=== PATIENT | male | born 1935 | race Caucasian/White ===

== ENCOUNTER 2018-07-08 11:14 | Emergency (ER) | payer OTHER ==
[~2018-07-08] VITALS: Ht 167.6 cm; Wt 68.5 kg
[~2018-07-08 11:14] MED LIST: ASPI-605 PO; HYDR-4354 PO; LISI10TA5 PO
[2018-07-08 11:28] VITALS: BP 116/80
--- NOTE | 2018-07-08 12:15 | NUR ---
For discharge-Aftercare instructions given verbalized understanding Home ambulatory Stable
== END 2018-07-08 12:14 | disposition home or self-care (01) ==
LOC: ER 11:19
DX: J20.9 Acute bronchitis, unspecified (principal); I10 Essential (primary) hypertension; Z79.82 Long term (current) use of aspirin
CPT/HCPCS: Z7502

== ENCOUNTER 2021-09-05 18:42 | Emergency (ER) | payer OTHER ==
[~2021-09-05] VITALS: Ht 162.6 cm; Wt 71.2 kg
[~2021-09-05 18:42] MED LIST changes: +LISI10TA29 PO; -LISI10TA5 PO
--- NOTE | 2021-09-05 19:08 | NUR ---
BIBDAUGHTER C/O ABD PAIN WITH CONSTIPATION, GAVE HIMSELF WITH ENEMA TODAY. HAS DARK STOOL PER DAUGHTER & S/P FALL IN BR, RT HAND SWELLING -KO. TO ER BED 11, HOOKED TO MONITOR, CHANGED TO HOPS GOWN, WARM BLANKET PROVIDED. AWAITING MD LEVIN.
[2021-09-05] MEDS ORDERED: ONDANSETRON HCL/PF 4 MG/2 ML VIAL IVP ONE (19:30)
[2021-09-05] MEDS ORDERED: IV NS 0.9% 500 ML BAG IV ONE (19:30)
[2021-09-05] MEDS ORDERED: ONDANSETRON HCL/PF 4 MG/2 ML VIAL ONE (19:31)
[2021-09-05] MEDS ORDERED: TRAMADOL HCL 50 MG TABLET ONE (19:37)
[2021-09-05 19:43] LABS: CALCIUM, SERUM 8.8 mg/dL (8.5-10.1); CARBON DIOXIDE 22 mmol/L (21-32); CHLORIDE 107 mmol/L (98-107); CREATININE 1.4 mg/dL (0.6-1.3); GLUCOSE 142 mg/dL (74-106); POTASSIUM 4.2 mmol/L (3.5-5.1); SODIUM SERUM 144 mmol/L (136-145); UREA NITROGEN, BLOOD 24 mg/dL (7-18)
[2021-09-05 19:48] LABS: ALANINE AMINOTRANSFERASE 18 U/L (12-78); ALBUMIN 4.1 g/dL (3.4-5.0); ALKALINE PHOSPHATASE 51 U/L (46-116); ASPARTATE AMINOTRANSFERASE 19 U/L (15-37); BILIRUBIN,DIRECT 0.5 mg/dL (0.0-0.2); BILIRUBIN,TOTAL 1.3 mg/dL (0.2-1.0); LIPASE 152 U/L (73-393); TOTAL PROTEIN, SERUM 8.2 g/dL (6.4-8.2)
[2021-09-05] MEDS ORDERED: TRAMADOL HCL 50 MG TABLET PO ONE (20:00)
[2021-09-05 20:08] LABS: BASOPHILS % (AUTO) 0.1 % (0.0-2.0); HEMATOCRIT 35 % (39-51); HEMOGLOBIN 12.1 g/dL (13.5-17.5); LYMPHOCYTES # (AUTO) 0.7 K/uL (0.8-4.8); LYMPHOCYTES % (AUTO) 3.5 % (20.0-44.0); MEAN CORPUSCULAR HGB CONC 35 g/dl (31.0-36.0); MEAN CORPUSCULAR VOLUME 97 fL (80-96); MONOCYTES # (AUTO) 1.2 K/uL (0.1-1.30); MONOCYTES % (AUTO) 6.3 % (2.0-12.0); NEUTROPHILS # (AUTO) 17.2 K/uL (1.8-8.9); NEUTROPHILS % (AUTO) 90.1 % (43.0-81.0); PLATELET COUNT (AUTO) 313 K/uL (150-450); RED BLOOD CELL COUNT(AUTO) 3.61 MIL/uL (4.5-6.0); WHITE BLOOD COUNT (AUTO) 19.1 K/uL (4.3-11.0)
--- NOTE | 2021-09-05 21:21 | NUR ---
covid swab done and sent to lab
[2021-09-05] MEDS ORDERED: MORPHINE SULFATE INJ 2 MG/ML DISP.SYRIN ONE (21:22)
[2021-09-05] MEDS ORDERED: NA PHOS,M-B/NA PHOS,DI-BA 1 EA ENEMA RC ONE ×2 (21:22→21:30)
[2021-09-05] MEDS ORDERED: MORPHINE SULFATE INJ 2 MG/ML DISP.SYRIN IV ONE (21:30)
--- NOTE | 2021-09-05 21:47 | NUR ---
PT PASSED LARGE SEMI SOLID BOWN BM. PT REPORTS RELIEF IN PAIN AND RECTAL PRESSURE.
[2021-09-05] MEDS ORDERED: LACT10SO3 PO (21:57)
--- NOTE | 2021-09-05 22:27 | NUR ---
Patient discharged to home in stable condition. Written and verbal after care instructions given. Patient verbalizes understanding of instruction.
[2021-09-05 22:28] VITALS: BP 112/90
== END 2021-09-05 22:29 | disposition home or self-care (01) ==
LOC: ER 18:51
DX: K56.41 Fecal impaction (principal); D72.829 Elevated white blood cell count, unspecified; Z20.822 Contact with and (suspected) exposure to COVID-19; R91.8 Other nonspecific abnormal finding of lung field; N40.0 Benign prostatic hyperplasia without lower urinary tract symptoms; I70.90 Unspecified atherosclerosis; I10 Essential (primary) hypertension
CPT/HCPCS: 36415; 71045; 73130; 74176; 80048; 80076; 83690; 85025; 87426; 93005; 96361; 96374; 96375; 99285; C9803; J2270; J2405; J7040